=== PATIENT | female | born 1950 | race Caucasian/White ===

== ENCOUNTER 2019-01-12 12:44 | Emergency (ER) | payer OTHER ==
[~2019-01-12] VITALS: Ht 167.6 cm; Wt 88.5 kg
[2019-01-12 12:58] VITALS: BP_SYST 152
[2019-01-12] MEDS ORDERED: IBUPROFEN 800 MG TABLET PO ONE (14:15)
[2019-01-12 15:50] VITALS: BP_SYST 128
== END 2019-01-12 15:50 | disposition home or self-care (01) ==
LOC: SED 12:44
DX: S86.812A Strain of other muscle(s) and tendon(s) at lower leg level, left leg, initial encounter (principal); Z88.1 Allergy status to other antibiotic agents; X50.1XXA Overexertion from prolonged static or awkward postures, initial encounter; Y93.89 Activity, other specified; Y92.89 Other specified places as the place of occurrence of the external cause; Y99.8 Other external cause status
CPT/HCPCS: 73564; 99283